=== PATIENT | female | born 1960 | race Caucasian/White ===

== ENCOUNTER 2022-05-25 12:49 | Emergency (ER) | payer OTHER ==
[~2022-05-25] VITALS: Ht 151.9 cm; Wt 64.1 kg
[~2022-05-25 12:49] MED LIST: LISI-486 PO
[2022-05-25 12:50] VITALS: BP 171/91
[2022-05-25] MEDS ORDERED: KETOROLAC 30 MG/ML VIAL IM ONE (13:20)
[2022-05-25] MEDS ORDERED: IBUP-2213 PO (15:32)
[2022-05-25 15:33] VITALS: BP 137/80
== END 2022-05-25 15:34 | disposition home or self-care (01) ==
LOC: MED 12:49
DX: S83.92XA Sprain of unspecified site of left knee, initial encounter (principal); M17.12 Unilateral primary osteoarthritis, left knee; I10 Essential (primary) hypertension; Z79.899 Other long term (current) drug therapy; X58.XXXA Exposure to other specified factors, initial encounter; Y93.89 Activity, other specified; Y92.89 Other specified places as the place of occurrence of the external cause; Y99.8 Other external cause status
CPT/HCPCS: 73560; 93971; 99284; Q0092; J1885